=== PATIENT | female | born 1955 | race Two or more races ===

== ENCOUNTER 2017-07-17 13:40 | Inpatient (IN) | payer OTHER ==
[~2017-07-17] VITALS: Ht 165.1 cm; Wt 72.1 kg
[2017-07-17] MEDS ORDERED: LISI2.5T47 PO (13:56)
[2017-07-17] MEDS ORDERED: FURO20TA4 PO (13:56)
[2017-07-17] MEDS ORDERED: ALBU2SYR PO (13:56)
[2017-07-17 15:02] LABS: BASOPHILS % 0.8 % (0.0-2.0); EOSINOPHILS % 1.9 % (0.0-5.0); HEMATOCRIT. 35.9 % (36.0-48.0); HEMOGLOBIN. 11.6 g/dL (12.0-16.0); LYMPHOCYTES % 23.6 % (20.0-50.0); MEAN CORPUSCULAR HEMOGLOBIN 28.9 pg (28.0-32.0); MEAN CORPUSCULAR VOLUME 89.5 fL (81.0-99.0); MEAN PLATELET VOLUME 8.5 fl (7.4-10.4); MONOCYTES % 8.4 % (2.0-8.0); NEUTROPHILS % 65.3 % (40.0-76.0); PLATELET 278 x1000/uL (130-400); RED BLOOD CELL COUNT 4.01 mill/uL (4.2-5.4); RED CELL DISTRIBUTION WIDTH 15.1 % (11.6-14.6)
[2017-07-17 15:12] LABS: CARBON DIOXIDE 24 mEq/L (21-32); CHLORIDE 112 mEq/L (98-107)
[2017-07-17 15:13] LABS: PROTHROMBIN TIME 10.8 sec (9.4-11.6)
[2017-07-17 15:16] LABS: TROPONIN I 0.05 ng/mL (0.00-0.04)
[2017-07-17] MEDS ORDERED: FUROSEMIDE 40MG/4ML VIAL IVP ONE (17:45)
[2017-07-17] MEDS ORDERED: ASPIRIN 81MG TABLET PO ONE (17:45)
[2017-07-17] MEDS ORDERED: DOCUSATE SODIUM 100MG CAPSULE PO PRN (18:45)
[2017-07-17] MEDS ORDERED: CLONIDINE 0.1MG TABLET PO PRN (18:45)
[2017-07-17] MEDS ORDERED: ACETAMINOPHEN 325MG TABLET PO PRN (18:45)
[2017-07-17] MEDS ORDERED: ONDANSETRON HCL 4MG/2ML VIAL IV PRN (18:45)
[2017-07-17] MEDS ORDERED: LABETALOL 5MG/ML SYR 20 MG/4 ML SYRINGE IV ONE (18:45)
[2017-07-17 21:25] VITALS: BP 166/103
[2017-07-17 22:04] VITALS: BP 159/94
[2017-07-17 22:50] VITALS: BP 166/103
[2017-07-17] MEDS ORDERED: CARV6.2548 PO (23:28)
[2017-07-17] MEDS ORDERED: LISI40TA4 PO (23:28)
[2017-07-17] MEDS ORDERED: ATOR10TA PO (23:30)
[2017-07-17] MEDS ORDERED: ALBU18HF2 IH (23:30)
[2017-07-18] VITALS: BP 152/97
[2017-07-18 00:47] LABS: CREATINE KINASE MB FRACTION 3.1 ng/mL (0.5-3.6); TROPONIN I 0.05 ng/mL (0.00-0.04)
[2017-07-18 04:00] VITALS: BP 159/97
[2017-07-18] MEDS ORDERED: PNEUMOCOCCAL 23-VAL P-SAC VAC 0.5 ML IM ONE (08:00)
[2017-07-18] MEDS ORDERED: INFLUENZA VIRUS VACCINE 0.5ML SYR IM ONE (08:00)
[2017-07-18 08:04] VITALS: BP 163/108
[2017-07-18 09:00] LABS: BASOPHILS % 0.6 % (0.0-2.0); EOSINOPHILS % 2.4 % (0.0-5.0); HEMATOCRIT. 37.1 % (36.0-48.0); HEMOGLOBIN. 11.9 g/dL (12.0-16.0); LYMPHOCYTES % 27.5 % (20.0-50.0); MEAN CORPUSCULAR HEMOGLOBIN 28.9 pg (28.0-32.0); MEAN CORPUSCULAR VOLUME 90.1 fL (81.0-99.0); MEAN PLATELET VOLUME 8.9 fl (7.4-10.4); MONOCYTES % 7.2 % (2.0-8.0); NEUTROPHILS % 62.3 % (40.0-76.0); PLATELET 302 x1000/uL (130-400); RED BLOOD CELL COUNT 4.12 mill/uL (4.2-5.4); RED CELL DISTRIBUTION WIDTH 14.8 % (11.6-14.6)
[2017-07-18] MEDS ORDERED: ENOXAPARIN 40MG/0.4ML SYR SUBCUT SCH (09:00)
[2017-07-18] MEDS ORDERED: FUROSEMIDE 40MG/4ML VIAL IV SCH (09:00)
[2017-07-18] MEDS ORDERED: ASPIRIN 81MG EC TABLET PO SCH (09:00)
[2017-07-18 09:16] LABS: CARBON DIOXIDE 24 mEq/L (21-32); CHLORIDE 108 mEq/L (98-107); CREATINE KINASE 158 IU/L (26-192); CREATINE KINASE MB FRACTION 3.3 ng/mL (0.5-3.6); HDL CHOLESTEROL 58 mg/dL (40-59); LDL CHOLESTEROL 103 mg/dL (5-100); TROPONIN I 0.04 ng/mL (0.00-0.04)
[2017-07-18] MEDS ORDERED: IPRATROPIUM/ALBUTEROL 0.5-3(2.5)MG/3ML NEB HHN PRN (12:00)
[2017-07-18 12:29] VITALS: BP 98/58
[2017-07-18] MEDS ORDERED: POTASSIUM CHLORIDE 20MEQ TABLET SR PO NR (13:15)
[2017-07-18 17:16] VITALS: BP 133/89
[2017-07-18 19:28] VITALS: BP 133/89
[2017-07-18] MEDS ORDERED: AMLODIPINE 5MG TABLET PO SCH (21:00)
== END 2017-07-18 19:55 | disposition short-term general hospital (02) | DRG 293 ==
LOC: ER 14:35 → 5WST 17:34 → SUPCPDRO 18:32 → ENRESERVDT 19:57 → ENRESERVTM 19:57
PROVIDERS: ADMIT Internal Medicine; ATTEND Internal Medicine
DX: I11.0 Hypertensive heart disease with heart failure (principal); E78.5 Hyperlipidemia, unspecified; I50.9 Heart failure, unspecified; J44.9 Chronic obstructive pulmonary disease, unspecified; Z79.899 Other long term (current) drug therapy
CPT/HCPCS: 36415; 71010; 80053; 80061; 82550; 82553; 83880; 84484; 85025; 85610; 90686; 90732; 93005; 93306; 96374; 96375; 99285; J1650; J1940; J3490

== ENCOUNTER 2020-11-29 13:05 | Emergency (ER) | payer BC, MEDICARE ==
[~2020-11-29] VITALS: Ht 165.1 cm; Wt 80.0 kg
[~2020-11-29 13:05] MED LIST: ALBU18HF2 IH; ALBU2SYR3 PO; ATOR20TA65 PO; FURO40TA5 PO; LISI40TA13 PO
[2020-11-29] MEDS ORDERED: SODIUM CHLORIDE 0.9% 1,000 ML IV ONE (13:45)
[2020-11-29 14:02] LABS: CHLORIDE 107 mEq/L (98-107)
[2020-11-29 14:07] LABS: BASOPHILS % 0.7 % (0.0-2.0); EOSINOPHILS % 2.4 % (0.0-5.0); HEMATOCRIT. 36.5 % (36.0-48.0); HEMOGLOBIN. 12.3 g/dL (12.0-16.0); LYMPHOCYTES % 29.5 % (20.0-50.0); MEAN CORPUSCULAR HEMOGLOBIN 30.4 pg (28.0-32.0); MEAN CORPUSCULAR VOLUME 90.1 fL (81.0-99.0); MEAN PLATELET VOLUME 8.5 fl (7.4-10.4); MONOCYTES % 8.2 % (2.0-8.0); NEUTROPHILS % 59.2 % (40.0-76.0); PLATELET 324 x1000/uL (130-400); RED BLOOD CELL COUNT 4.05 mill/uL (4.2-5.4)
[2020-11-29] MEDS ORDERED: ACETAMINOPHEN 325MG TABLET PO ONE (14:30)
[2020-11-29 17:26] VITALS: BP 183/88
== END 2020-11-29 17:32 | disposition short-term general hospital (02) ==
LOC: ER 13:24 → CANBEDREQ 18:14
DX: R55 Syncope and collapse (principal); I95.9 Hypotension, unspecified; I11.0 Hypertensive heart disease with heart failure; I50.9 Heart failure, unspecified; Z79.899 Other long term (current) drug therapy
CPT/HCPCS: 36415; 70450; 71045; 80053; 83690; 83880; 85025; 93005; 96360; 99285; J7030; Z7610